=== PATIENT | female | born 1970 | race Asian ===

== ENCOUNTER 2018-11-26 10:09 | Day surgery (SDC) | payer OTHER ==
[2018-11-26] VITALS (17 sets, daily range): BP systolic 89–118; BP diastolic 52–77; PULSE 76–93; RESP 11–18; Ht 162.6 cm; Wt 78.5 kg
[~2018-11-26] VITALS: Ht 162.6 cm; Wt 78.5 kg
[2018-11-26] MEDS ORDERED: LOSA1TAB22 ORAL (10:49)
[2018-11-26] MEDS ORDERED: ATOR20TA65 ORAL (10:49)
[2018-11-26] MEDS ORDERED: GLIP1TAB5 ORAL (10:49)
[2018-11-26] MEDS ORDERED: GABA100C14 ORAL (10:49)
--- NOTE | 2018-11-26 11:38 | PREAC ---
Date/Time of Note Date/Time of Note DATE: 11/26/18 TIME: 11:37 Anesthesia Eval and Record Evaluation Time Pre-Procedure Interview DATE: 11/26/18 TIME: 11:37 Age 48 Sex female NPO: 8 hrs Preoperative diagnosis left knee meniscal tear Planned procedure left knee arthroscopy, meniscectomy Past Medical History Past Medical History: Includes Cardio: HTN, Dyslipidemia Endo: Diabetes Surgery & Anesthesia Issues No known issue Meds Anticoagulation: No Beta Asha within 24 hr: No Reason Beta Asha not given: Pt. not on B-Asha Reported Medications Glipizide/Metformin HCl (Glipizide-Metformin 2.5-500 mg) 1 Each Tablet, 1 TAB ORAL BID 11/26/18 Gabapentin* (Gabapentin*) 100 Mg Capsule, 1 CAP ORAL BID 11/26/18 Atorvastatin Calcium (Atorvastatin Calcium) 20 Mg Tablet, 1 TAB ORAL QHS 11/26/18 Losartan-Hydrochlorothiazide (Losartan-HCTZ) 50-12.5 Mg Tab, 1 TAB ORAL DAILY 11/26/18 Meds reviewed: Yes Allergies Coded Allergies: No Known Allergy (Unverified , 11/26/18) Allergies Reviewed: Yes Labs/Studies Labs Reviewed: Reviewed by anesthesiologist test: Negative Pre-procedure Exam Last vitals Vital Signs Date Temp Pulse Resp B/P (MAP) Pulse Ox O2 O2 Flow FiO2 Time Delivery Rate 11/26/18 97.6 82 16 118/77 97 Room Air 11:10 (91) Airway: Adequate mouth opening, Adequate thyromental dist Mallampati: Mallampati II Teeth: Normal Lung: Normal Heart: Normal ASA Physical Status ASA physical status: 2 Emergency: None Planned Anesthetic General/MAC: LMA Planned Pain Management Parenteral pain med Pre-operative Attestations Prior to commencing anesthesia and surgery, the patient was re-evaluated, there was verification of: *The patient's identity *The results of appropriate recent lab work and preoperative vital signs *The above evaluation not changing prior to induction *Anesthetic plan, risk benefits, alternative and complications discussed with patient/family; questions answered; patient/family understands, accepts and wishes to proceed. SAYDA GOOD Nov 26, 2018 11:38
[2018-11-26] MEDS ORDERED: ROPIVACAINE 0.5 % 30 ML VIAL ONE (11:41)
[2018-11-26] MEDS ORDERED: PROPOFOL 100 ML ONE (11:57)
[2018-11-26] MEDS ORDERED: LIDOCAINE 2% (SDV) 5 ML INJ ONE (11:58)
[2018-11-26] MEDS ORDERED: ROCURONIUM 50 MG INJ ONE (11:58)
[2018-11-26] MEDS ORDERED: FENTAnyl 50 MCG/ML VIAL ONE ×3 (12:04→13:41)
[2018-11-26] MEDS ORDERED: CEFAZOLIN 1 GM INJ ONE (12:05)
[2018-11-26] MEDS ORDERED: DEXAMETHASONE 4 MG/ML 5 ML INJ ONE (12:05)
[2018-11-26] MEDS ORDERED: ONDANSETRON 4 MG INJ ONE (12:05)
[2018-11-26] MEDS ORDERED: LABETALOL HCL 20MG INJ ONE ×2 (12:30→12:34)
[2018-11-26] MEDS ORDERED: hydrALAzine 20 MG INJ ONE (12:35)
[2018-11-26] MEDS ORDERED: SOD CHLORIDE 0.9% 1,000 ML IV SCH (13:31)
--- NOTE | 2018-11-26 13:33 | OPPN ---
Date/Time of Note Date/Time of Note DATE: 11/26/18 TIME: 13:32 Operative Report Preoperative Diagnosis Left knee medial meniscus tear Postoperative Diagnosis left knee medial meniscus tear, grade 3 chondromalacia Operation/Procedure Performed arthroscopy of the left knee with medial meniscectomy and chondroplasty Surgeon see signature line research assistant member Sanaz Han PA-C Anesthesia: general Estimated blood loss: minimal Transfusion Required none Specimen none Grafts/Implants none Complications none MELQUIADES SNOW MD Nov 26, 2018 13:33
--- NOTE | 2018-11-26 13:34 | PAC ---
Date/Time of Note Date/Time of Note DATE: 11/26/18 TIME: 13:34 Post-Anesthesia Notes Post-Anesthesia Note Last documented vital signs Vital Signs Date Temp Pulse Resp B/P (MAP) Pulse Ox O2 O2 Flow FiO2 Time Delivery Rate 11/26/18 97.6 82 16 118/77 97 Room Air 1334 (91) Activity: WNL Respiratory function: WNL Cardiovascular function: WNL Mental status: Baseline Pain reasonably controlled: Yes Hydration appropriate: Yes Nausea/Vomiting absent: Yes SAYDA GOOD Nov 26, 2018 13:34
[2018-11-26] MEDS ORDERED: ONDANSETRON 4 MG INJ IV PRN ×2 (14:00)
[2018-11-26] MEDS ORDERED: OXYCODONE/ACETAMINOPHEN (5/325) TAB PO PRN ×4 (14:00)
[2018-11-26] MEDS ORDERED: KETOROLAC 30 MG INJ IV PRN (14:00)
[2018-11-26] MEDS ORDERED: morphine 2 MG INJ IV PRN (14:00)
[2018-11-26] MEDS ORDERED: DIPHENHYDRAMINE 50 MG INJ IV PRN (14:00)
[2018-11-26] MEDS ORDERED: LABETALOL HCL 20MG INJ IV PRN (14:00)
[2018-11-26] MEDS ORDERED: EPHEDrine SULFATE 50 MG/5 ML SYG IV PRN (14:00)
[2018-11-26] MEDS ORDERED: ALBUTEROL 0.083% (NEB) 2.5 MG/3 ML AMP HHN PRN (14:00)
[2018-11-26] MEDS ORDERED: hydrALAzine 20 MG INJ IV PRN (14:00)
[2018-11-26] MEDS ORDERED: MEPERIDINE 25 MG INJ IV PRN (14:00)
[2018-11-26] MEDS ORDERED: HYDROmorphONE 1 MG/5 ML IV SYRINGE IV PRN ×3 (14:00)
[2018-11-26] MEDS ORDERED: METOCLOPRAMIDE 10 MG INJ IV PRN (14:00)
[2018-11-26] MEDS ORDERED: FENTAnyl 50 MCG/ML VIAL IV PRN ×3 (14:00)
--- NOTE | 2018-11-26 15:50 | OPR ---
DATE OF OPERATION: 11/26/2018 PREOPERATIVE DIAGNOSES: 1. Preoperative complex tear of medial meniscus, left knee. 2. Chondromalacia of the knee. POSTOPERATIVE DIAGNOSES: 1. Complex tear posterior half medial meniscus, left knee. 2. Chondromalacia grade III, slight areas of grade IV in the medial femoral condyle and grade II exc ept for slight areas of grade IV on the medial tibial plateau. 3. Chondromalacia grade I lateral tibial plateau. 4. 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 OPERATION PERFORMED: 1. Arthroscopy, left knee. 2. Partial medial meniscectomy. 3. Chondroplasty of the patella. SURGEON: Melquiades Power MD SURGICAL AIDES TEACHER: FABY Baez ANESTHESIA: General. TOURNIQUET TIME: Zero. DESCRIPTION OF PROCEDURE: The patient taken to the operating room and placed in supine position. Sa tisfactory general anesthesia was administered. The left knee was prepped and draped in usual manner . Exam under anesthesia revealed full range of motion, AP drawer and Juliane 1+, pivot shift negativ e. No varus or valgus instability. Patient was given 2 grams of Ancef. Standard arthroscopic portals were used. Undersurface of the pa tella had grade II to III chondromalacia more laterally and centrally and minimal medially. The troc hlea had minimal grade I chondromalacia. There was some loose articular cartilage pieces in the late ral gutter. Popliteus intact. Lateral compartment was entered. Lateral meniscus looked entirely no rmal. There was grade I chondromalacia of the lateral tibial plateau and lateral femoral condyle. A nterior and posterior cruciates were intact, origins and insertions. Medial compartment was entered. Diffuse grade II to III chondromalacia medial femoral condyle, small areas of grade IV. There was also some grade 2 chondromalacia of the medial tibial plateau a couple small areas of grade IV. Ther e was a tear of the medial meniscus from the mid zone to the posterior horn. Probe inserted. The te ar was palpated. Using curved and straight baskets, the tear was saucerized from the mid zone to the posteromedial horn. Shaver was used to smooth and contour the edges and remove all loose debris. O nce a stable remnant had been achieved, we were satisfied and a chondroplasty was performed along the medial tibial plateau and medial femoral condyle. The arthroscope was brought into the intercondyla r notch. Anterior and posterior cruciates were palpated and were intact. Lateral meniscus was palpa tamara and was intact. Bleeders were coagulated with electrosurgery. The patient had a moderate amount of bleeding during surgery that was stopped with the electrosurgery device. A chondroplasty was per formed along the patella and the knee was irrigated clear. Wounds were closed with Steri-Strips and 0.5% ropivacaine. A compression dressing and ice pack were applied. Patient brought to recovery tremiane m in stable condition. At the end of procedure sponge, needle and instrument count was correct. Pat ient tolerated procedure well. Dictated By: MELQUIADES MALDONADO/WHIT Conf#: [id number] DID#: [id number]
== END 2018-11-26 17:00 | disposition home or self-care (01) ==
LOC: SDS 10:09
PROVIDERS: ATTEND Orthopaedic Surgery
DX: S83.232A Complex tear of medial meniscus, current injury, left knee, initial encounter (principal); X58.XXXA Exposure to other specified factors, initial encounter; M94.262 Chondromalacia, left knee; E11.9 Type 2 diabetes mellitus without complications; I10 Essential (primary) hypertension; Z79.84 Long term (current) use of oral hypoglycemic drugs
CPT/HCPCS: 29881; 82962; 84703; J0360; J0690; J1100; J2405; J2795; J3010